=== PATIENT | female | born 1990 | race Caucasian/White ===

== ENCOUNTER 2020-02-09 14:16 | Emergency (ER) | payer BC ==
[2020-02-09 15:26] LABS: ANION GAP 18.8 mEq/L (7-13); CHLORIDE,CL 100 mmol/L (98-107); SODIUM,NA 138 mmol/L (136-145)
[2020-02-09] MEDS ORDERED: traMADol 50 MG Tab PO ONE (15:27)
--- NOTE | 2020-02-09 15:27 | EDM.PDOC ---
ED HPI GENERAL MEDICAL PROBLEM - General Chief Complaint: MANAGER UNDERWRITING Problem Stated Complaint: MISCARRY Time Seen by Provider: 02/09/20 14:45 Source of Information: Reports: Patient, RN, RN Notes Reviewed History Limitations: Reports: No Limitations - History of Present Illness INITIAL COMMENTS - FREE TEXT/NARRATIVE: Patient presents to the ED via personal vehicle with complaints of vaginal bleeding; she is with hx of spontaneous . The patient reports she experienced a with a blighted ovum which was detected late December 2019 (patient was unsure of exact date). She subsequently was prescribed Cytotec for planned of the ovum, which she started on January 08. She states she has been experiencing vaginal bleeding since the initiation of that medication; she has changed her pad 4x in 24/hrs over the past few weeks. Today, at approximately 1345, the patient experienced "a gush of heavy bleeding." She has saturated four pads since that time. She does attest to passing clots. She denies recent fever, shaking chills, chest pressure, palpitations, shortness of breath, nausea, vomiting, or diarrhea. She does attest to significant abdominal cramping. She is unsure of her LMP as she had a positive test is September which she believed to have miscarried from in October. She then had a positive test in November. Abdomen Pain Score (Numeric/FACES): 6 - Related Data Allergies Allergy/AdvReac Type Severity Reaction Status Date / Time No Known Allergies Allergy Verified 02/09/20 14:43 Home Meds: Home Meds . [No Known Home Meds] 02/09/20 [History] Past Medical History Gastrointestinal History: Reports: Cholelithiasis MANAGER UNDERWRITING History: Reports: Hematologic History: Reports: Anemia - Infectious Disease History Infectious Disease History: Reports: Chicken Pox - Past Surgical History GI Surgical History: Reports: Cholecystectomy Social & Family History - Tobacco Use Tobacco Use Status *Q: Never Tobacco User - Recreational Drug Use Recreational Drug Use: No ED ROS GENERAL - Review of Systems Review Of Systems: Comprehensive ROS is negative, except as noted in HPI. ED EXAM, GI/ABD - Physical Exam Exam: See Below Exam Limited By: No Limitations General Appearance: Alert, WD/WN, No Apparent Distress, Obese Eyes: Bilateral: Normal Appearance, EOMI Respiratory/Chest: No Respiratory Distress, Lungs Clear, Normal Breath Sounds, No Accessory Muscle Use, Chest Non-Tender Cardiovascular: Normal Peripheral Pulses, Regular Rate, Rhythm, No Edema, No Gallop, No JVD, No Murmur, No Rub GI/Abdominal Exam: Normal Bowel Sounds, Soft, Non-Tender, No Distention, No Mass, Pelvis Stable (Female) Exam: Vaginal Bleeding. No: Vaginal Lesions, Vaginal Tears Rectal (Female) Exam: Deferred Back Exam: Normal Inspection, Full Range of Motion Neurological: Alert, Oriented, CN II-XII Intact, Normal Cognition, Normal Gait, No Motor/Sensory Deficits Psychiatric: Normal Affect, Normal Mood Skin Exam: Warm, Dry, Intact, Normal Color, No Rash. No: Ecchymosis, Erythema, Mottled, Pallor, Petechiae, Rash Course - Vital Signs Last Recorded V/S: Last Vital Signs Temp 99.1 F 02/09/20 14:43 Pulse 88 02/09/20 14:43 Resp 16 02/09/20 14:43 BP 134/81 02/09/20 14:43 Pulse Ox 100 02/09/20 14:43 - Orders/Labs/Meds Orders: Active Orders 24 hr Category Date Time Status ANTIBODY IDENTIFICATION [BBK] Stat Lab 02/09/20 14:42 Results CULTURE BLOOD [BC] Stat Lab 02/09/20 14:42 Received TYPE AND SCREEN [BBK] Stat Lab 02/09/20 14:42 Results WEAK D TEST [BBK] Stat Lab 02/09/20 14:42 Results Blood Transfusion Reflex Orders [OM.PC] Routine Oth 02/09/20 14:33 Ordered Labs: Laboratory Tests 02/09/20 02/09/20 02/09/20 Range/Units 14:42 14:42 14:42 WBC 8.4 (5.0-10.0) 10^3/uL RBC 4.57 (4.2-5.4) 10^6/uL Hgb 13.3 (12.0-16.0) g/dL Hct 38.7 (37.0-47.0) % MCV 84.7 (80-100) fL MCH 29.1 (27.0-34.0) pg MCHC 34.4 (33.0-35.0) g/dL Plt Count 225 (150-450) 10^3/uL Neut % (Auto) 61.5 (42.2-75.2) % Lymph % (Auto) 29.4 (20.5-50.1) % Edmunds % (Auto) 6.9 (2-8) % Eos % (Auto) 1.7 (1.0-3.0) % Baso % (Auto) 0.5 (0.0-1.0) % Sodium 138 (136-145) mmol/L Potassium 3.8 (3.5-5.1) mmol/L Chloride 100 (98-107) mmol/L Carbon Dioxide 23 (21-32) mmol/L Anion Gap 18.8 H (7-13) mEq/L BUN 12 (7-18) mg/dL Creatinine 0.66 (0.55-1.02) mg/dL Est Cr Clr Drug Dosing TNP Estimated GFR (MDRD) > 60 BUN/Creatinine Ratio 18.2 (No establ ref range) Glucose 101 H (74-99) mg/dL Lactic Acid (0.4-2.0) mmol/L Calcium 9.3 (8.5-10.1) mg/dL Total Bilirubin 0.3 (0.2-1.0) mg/dL AST 13 L (15-37) U/L ALT 27 (14-59) U/L Alkaline Phosphatase 69 (46-116) U/L C-Reactive Protein 2.2 H (0.0-0.9) mg/dL Total Protein 7.6 (6.4-8.2) g/dL Albumin 4.0 (3.4-5.0) g/dL Globulin 3.6 Albumin/Globulin Ratio 1.1 HCG, Quant (0-6) mIU/mL Blood Type A NEGATIVE Gel Antibody Screen Positive 02/09/20 02/09/20 Range/Units 14:42 14:42 WBC (5.0-10.0) 10^3/uL RBC (4.2-5.4) 10^6/uL Hgb (12.0-16.0) g/dL Hct (37.0-47.0) % MCV (80-100) fL MCH (27.0-34.0) pg MCHC (33.0-35.0) g/dL Plt Count (150-450) 10^3/uL Neut % (Auto) (42.2-75.2) % Lymph % (Auto) (20.5-50.1) % Edmunds % (Auto) (2-8) % Eos % (Auto) (1.0-3.0) % Baso % (Auto) (0.0-1.0) % Sodium (136-145) mmol/L Potassium (3.5-5.1) mmol/L Chloride (98-107) mmol/L Carbon Dioxide (21-32) mmol/L Anion Gap (7-13) mEq/L BUN (7-18) mg/dL Creatinine (0.55-1.02) mg/dL Est Cr Clr Drug Dosing Estimated GFR (MDRD) BUN/Creatinine Ratio (No establ ref range) Glucose (74-99) mg/dL Lactic Acid 1.1 (0.4-2.0) mmol/L Calcium (8.5-10.1) mg/dL Total Bilirubin (0.2-1.0) mg/dL AST (15-37) U/L ALT (14-59) U/L Alkaline Phosphatase (46-116) U/L C-Reactive Protein (0.0-0.9) mg/dL Total Protein (6.4-8.2) g/dL Albumin (3.4-5.0) g/dL Globulin Albumin/Globulin Ratio HCG, Quant 85 H (0-6) mIU/mL Blood Type Gel Antibody Screen Meds: Medications Discontinued Medications Generic Name Dose Route Start Last Admin Trade Name Freq PRN Reason Stop Dose Admin Ondansetron HCl 4 mg 02/09/20 15:38 02/09/20 15:39 Zofran IVPUSH 02/09/20 15:39 4 mg ONETIME ONE Administration Tramadol HCl 50 mg 02/09/20 15:27 02/09/20 15:38 Ultram PO 02/09/20 15:28 50 mg ONETIME ONE Administration - Radiology Interpretation Free Text/Narrative:: [facility] Final Radiology Report Call: [phone] assistance Online chat: [email or web address] Name: NOEL GARCIA Age: 29Years F Date: 02/09/2020 SSN: -- : 1990 Study: US OB 1ST TRI SGL 1ST GEST Requesting Physician: Sophie Eldridge Images: 44 Addl Studies: Provided Clinical History: anembryonic > 30 days ago; Vaginal bleed Contrast: Without Contrast Medium: Contrast Amount: Contrast Method: Page 1 of 2 PROCEDURE INFORMATION: Exam: US First Trimester, Transabdominal Exam date and time: 02/09/2020 4:01 PM Age: 29 years old Clinical indication: Lmp or gestational age (in weeks): >30 days; Other: Heavy bleeding; Additional info: Anembryonic > 30 days ago; Vaginal bleed TECHNIQUE: Imaging protocol: Real-time transabdominal obstetrical ultrasound of the maternal pelvis and a first trimester , less than 14 weeks 0 days, with image documentation. COMPARISON: No relevant prior studies available. FINDINGS: Gestation: See "Uterus" finding. Embryonic/ heart rate: FHR Placenta: Unremarkable. No subchorionic bleed. Amniotic fluid: Amniotic fluid is normal for gestational age. BIOMETRY: Gestational age (AUA): EGA MATERNAL: Uterus: Small amount of fluid in endometrial canal. No gestational sac identified. Cervix: Unremarkable. Intraperitoneal space: No intraperitoneal free fluid. Other findings: Ovaries are not identified. NOEL GARCIA | Final Radiology Report CONFIDENTIALITY STATEMENT This report is intended only for use by the referring physician, and only in accordance with law. If you received this in error, call [phone]. Page 2 of 2 IMPRESSION: No intrauterine identified . Continued follow-up of serum beta HCG values would be advised if retained products of conception are being considered. . Thank you for allowing us to participate in the care of your patient. Dictated and Authenticated by: George Robles MD 02/09/2020 5:17 PM Central Time ([place] & [place]) - Re-Assessments/Exams Free Text/Narrative Re-Assessment/Exam: 02/09/20 Patient resting comfortably with at bedside following administration of Ultram. Patient continues to experience vaginal bleeding, but states it has slowed down. OB US revealed fluid in the uterus with no retained products of conception. Spoke with Dr. Lee, patient OBGYN, regarding her case. Hgb is stable at 13.3 and Quant is decreasing at 85. Patient to follow up with Dr. Lee on Saturday at 0845. Patient encouraged to return to the ED or clinic with any worsening bleeding, saturating one pad in one hour x2, palpitations, dizziness, or shortness of breath. Patient and verbalized understanding and agreement with the plan of care. Departure - Departure Time of Disposition: 17:29 Disposition: Home, Self-Care 01 Condition: Good Clinical Impression: Complete , Vaginal bleeding - Discharge Information *PRESCRIPTION DRUG MONITORING PROGRAM REVIEWED*: Not Applicable *COPY OF PRESCRIPTION DRUG MONITORING REPORT IN PATIENT MELISSA: Not Applicable Instructions: Abnormal Uterine Bleeding, [id number] Forms: ED Department Discharge Additional Instructions: 1.) Follow up with Dr. Lee at your scheduled time: Saturday02/13/2020 at 0845am 2.) You may take Tylenol 650mg every six hours for cramping. You may take Ibuprofen 400mg every six hours for cramping. You may stagger these medications so you are taking a dose every three hours. 3.) Drink a lot of water to stay hydrated. 4.) Return to your primary care clinic or emergency department with any vaginal bleeding that saturates one pad every hours x4 hours, heart palpitations, dizziness, or shortness of breath. Sepsis Event Note (ED) - Evaluation Sepsis Screening Result: No Definite Risk - Focused Exam Vital Signs: Vital Signs Temp Pulse Pulse Resp BP BP Pulse Ox 02/09/20 14:43 99.1 F 88 16 134/81 100 02/09/20 14:36 98.1 F 78 18 134/81 100 - My Orders Last 24 Hours: My Active Orders 02/09/20 14:33 Blood Transfusion Reflex Orders [OM.PC] Routine 02/09/20 14:42 ANTIBODY IDENTIFICATION [BBK] Stat CULTURE BLOOD [BC] Stat TYPE AND SCREEN [BBK] Stat WEAK D TEST [BBK] Stat - Assessment/Plan Last 24 Hours: My Active Orders 02/09/20 14:33 Blood Transfusion Reflex Orders [OM.PC] Routine 02/09/20 14:42 ANTIBODY IDENTIFICATION [BBK] Stat CULTURE BLOOD [BC] Stat TYPE AND SCREEN [BBK] Stat WEAK D TEST [BBK] Stat
[2020-02-09] MEDS ORDERED: Ondansetron 4 MG in Sodium Chloride 0.9% 50 ML IV ONE (15:37)
[2020-02-09] MEDS ORDERED: Ondansetron 4 MG/2 ML SDV IVPUSH ONE (15:38)
--- NOTE | 2020-02-09 17:18 | US ---
PROCEDURE INFORMATION: Exam: US First Trimester, Transabdominal Exam date and time: 02/09/2020 4:01 PM Age: 29 years old Clinical indication: Lmp or gestational age (in weeks): >30 days; Other: Heavy bleeding; Additional info: Anembryonic > 30 days ago; Vaginal bleed TECHNIQUE: Imaging protocol: Real-time transabdominal obstetrical ultrasound of the maternal pelvis and a first trimester , less than 14 weeks 0 days, with image documentation. COMPARISON: No relevant prior studies available. FINDINGS: Gestation: See "Uterus" finding. Embryonic/ heart rate: FHR Placenta: Unremarkable. No subchorionic bleed. Amniotic fluid: Amniotic fluid is normal for gestational age. BIOMETRY: Gestational age (AUA): EGA MATERNAL: Uterus: Small amount of fluid in endometrial canal. No gestational sac identified. Cervix: Unremarkable. Intraperitoneal space: No intraperitoneal free fluid. Other findings: Ovaries are not identified. IMPRESSION: No intrauterine identified . Continued follow-up of serum beta HCG values would be advised if retained products of conception are being considered. .
== END 2020-02-09 17:52 | disposition home or self-care (01) ==
LOC: DL.ED 14:16
DX: O03.9 Complete or unspecified spontaneous abortion without complication (principal)
CPT/HCPCS: 36415; 76801; 80053; 83605; 84702; 85025; 86140; 86850; 86870; 86900; 86901; 87040; 96374; 99284; A9270; J2405